=== PATIENT | female | born 1985 | race American Indian/Alaskan Native ===

== ENCOUNTER 2016-10-30 23:19 | Emergency (ER) | payer MEDICAID ==
[2016-10-31 00:24] LABS: Basophils % (Auto) 0.8 % (0.0-1.8); Eosinophils % (Auto) 2.3 % (0.0-4.3); Hematocrit 38.5 % (30.3-42.9); Hemoglobin 12.8 gm/dl (10.1-14.3); Mean Corpuscular HGB Conc 33 % (30-34); Mean Corpuscular Hemoglobin 29 pg (28-32); Mean Corpuscular Volume 86 fl (79-97); Platelet Count 344 K/mm3 (140-440); Red Blood Count 4.46 M/mm3 (3.65-5.03); Red Cell Distribution Width 12.8 % (13.2-15.2); White Blood Count 5.9 K/mm3 (4.5-11.0)
[2016-10-31 00:39] LABS: Anion Gap 17 mmol/L; BUN/Creatinine Ratio 18.57; Blood Urea Nitrogen 13 mg/dL (7-17); Calcium 9.2 mg/dL (8.4-10.2); Carbon Dioxide 22 mmol/L (22-30); Chloride 100.7 mmol/L (98-107); Glucose 138 mg/dL (65-100); Potassium 3.7 mmol/L (3.6-5.0); Sodium 136 mmol/L (137-145)
[2016-10-31 03:46] VITALS: BP 123/79
== END 2016-10-31 04:00 | disposition left against medical advice (07) ==
LOC: ED 23:19
DX: R07.89 Other chest pain (principal); Z53.21 Procedure and treatment not carried out due to patient leaving prior to being seen by health care provider
CPT/HCPCS: 36415; 80048; 84484; 85025; 93005; 93010

== ENCOUNTER 2017-05-05 10:52 | Emergency (ER) | payer MEDICAID ==
[2017-05-05 11:13] LABS: Basophils % (Auto) 0.3 % (0.0-1.8); Eosinophils % (Auto) 2.2 % (0.0-4.3); Hematocrit 38.8 % (30.3-42.9); Hemoglobin 12.4 gm/dl (10.1-14.3); Mean Corpuscular HGB Conc 32 % (30-34); Mean Corpuscular Hemoglobin 28 pg (28-32); Mean Corpuscular Volume 88 fl (79-97); Platelet Count 354 K/mm3 (140-440); Red Blood Count 4.42 M/mm3 (3.65-5.03); Red Cell Distribution Width 13.6 % (13.2-15.2); White Blood Count 6.4 K/mm3 (4.5-11.0)
[2017-05-05 11:41] LABS: Anion Gap 20 mmol/L; Blood Urea Nitrogen 4 mg/dL (7-17); Calcium 8.9 mg/dL (8.4-10.2); Carbon Dioxide 19 mmol/L (22-30); Glucose 77 mg/dL (65-100); Potassium 3.9 mmol/L (3.6-5.0); Sodium 139 mmol/L (137-145)
[2017-05-05] MEDS ORDERED: TYLENOL PO ONE (16:24)
--- NOTE | 2017-05-05 16:48 | Emergency Department Report ---
HPI - General Chief Complaint: Dyspnea/Respdistress Time Seen by Provider: 05/05/17 16:09 - HPI HPI: 31 yo AA F presents to the ED with the complaint of right arm pain from the shoulder that sometimes goes down to the wrist and/or hand. It is a burning and stinging sensation, sharp but constant since this morning. She had some nausea without vomiting and SOB earlier today that has since resolved. She is currently 22 weeks at with 2 previousl miscarriages and 2 ectopics. No PCP but OBGYN is [facility]. She has not taken anything for her symptoms prior to presentation. She denies any CP, back pain, Cough, fever, dysuria, abdominal pain, vaginal bleeding or discharge. She says this arm pain has happened before but usually it is intermittent. No recent travel or sick contacts at home. ED Past Medical Hx - Past Medical History Previous Medical History?: Yes Hx Asthma: No Additional medical history: heart murmur - Surgical History Past Surgical History?: Yes Hx Open Heart Surgery: Yes (age 10) Additional Surgical History: "Hernia surgery"; open heart surgery at 10 for "hole in my heart"; ectopic - Social History Smoking Status: Never Smoker Substance Use Type: None - Medications Home Medications: Home Medications Medication Instructions Recorded Confirmed Last Taken Type Flaxseed Oil [Flax Seed Oil] 1,000 mg PO DAILY 03/24/16 03/24/16 Unknown History Loratadine [Claritin] 10 mg PO DAILY 03/24/16 03/24/16 Unknown History traMADol [Ultram] 50 mg PO Q6HR PRN #20 tablet 03/24/16 Unknown Rx ED Review of Systems ROS: Stated complaint: RT ARM PAIN Other details as noted in HPI Comment: All other systems reviewed and negative Constitutional: denies: chills, fever Eyes: denies: eye pain, eye discharge, vision change ENT: denies: ear pain, throat pain Respiratory: shortness of breath (resolved). denies: cough, wheezing Cardiovascular: denies: chest pain, palpitations Gastrointestinal: denies: abdominal pain, nausea, diarrhea Genitourinary: denies: urgency, dysuria, discharge Musculoskeletal: arthralgia, myalgia. denies: back pain Skin: denies: rash, lesions Neurological: denies: headache, weakness, numbness Physical Exam - Physical Exam Vital Signs: Vital Signs 05/05/17 05/05/17 05/05/17 10:55 15:52 16:35 Temperature 98.1 F Pulse Rate 89 Respiratory 18 16 Rate Blood Pressure 128/62 108/59 O2 Sat by Pulse 98 Oximetry Physical Exam: General - Well nourished. Well developed Eyes - PERRLA, EOM intact. HEENT - Atraumatic. Normocephalic. Moist mucous membranes. Oropharynx is clear. Neck - Supple. Trachea is midline. Cardiovascular - Regular rate and rhythm. No murmurs. Lungs - Clear to auscultation, No tachypnea. No signs of respiratory distress. Skin - No rashes, skin warm and dry, no erythematous areas Abdomen - Normal bowel sounds, abdomen soft and nontender. No guarding or rebound tenderness. Gravid uterus palpable just above the umbilicus. Extremeties - Right arm pain is reproducible to palpation and with ROM of the arm and shoulder. Radial pulses +2/4 b/l. Cap refill < 2 secs. No obvious signs of trauma. Neurological Alert and oriented x 3, CN 2-12 grossly intact. Normal gait. Normal speech. ED Course Vital Signs 05/05/17 05/05/17 05/05/17 10:55 15:52 16:35 Temperature 98.1 F Pulse Rate 89 Respiratory 18 16 Rate Blood Pressure 128/62 108/59 O2 Sat by Pulse 98 Oximetry ED Medical Decision Making - Lab Data Result diagrams: 05/05/17 11:00 05/05/17 11:00 - EKG Data -: EKG Interpreted by Nm EKG shows normal: sinus rhythm (with occasional PVC), axis, intervals, QRS complexes, ST-T waves Rate: normal - EKG Data When compared to previous EKG there are: no significant change Interpretation: unchanged when compared t (10/30/16) - Medical Decision Making 31-year-old female presents to the emergency department with pain to the right shoulder and right arm has been going on mostly since this morning. Earlier today she had some transient shortness of breath and some nausea without vomiting. However those symptoms have resolved she just complains of the arm pain. She has full range of motion but it does cause some discomfort with movement. The tenderness is also reproducible with palpation. There is no swelling of the joint seen, skin color change, warmth. There was no trauma to the area. Given that the patient had some arm pain and short of breath she was started here with a chest pain workup that included a negative EKG and her labs have shown negative troponins 2. She has no tachycardia, hypoxia, current chest pain or shortness of breath and appears low suspicion for pulmonary embolism. She was given some Tylenol for her discomfort with some relief of her symptoms. She appears safe for discharge home at this time. She has been given a referral for an orthopedist. She will return to the ER if any worsening or symptoms or any acute distress. - Differential Diagnosis arthritis, septic joint, muscle spasm, sprain, paresthesias, neuropathy Critical Care Time: No Critical care attestation.: If time is entered above; I have spent that time in minutes in the direct care of this critically ill patient, excluding procedure time. ED Disposition Clinical Impression: Right arm pain Qualifiers: Weeks of gestation: 22 weeks Qualified Code(s): Z3A.22 - 22 weeks gestation of Right shoulder pain Qualifiers: Chronicity: unspecified Qualified Code(s): M25.511 - Pain in right shoulder Disposition: DC-01 TO HOME OR SELFCARE Is pt being admited?: No Condition: Stable Instructions: Arthralgia (ED), (ED) Additional Instructions: Please follow up with a primary care physician in the next few days if possible. I have given a referral for a local orthopedist, Dr. Gonzalez, in case he would like to follow up regarding her shoulder and arm pain. He can take Tylenol every 4 hours, using weight-based dosing, as needed for discomfort. Return to the emergency Department with any worsening of her symptoms or any acute distress. Referrals: SAMI CULP MD [Primary Care Provider] - 3-5 Days MALIHA GONZALEZ MD [Staff Physician] - 3-5 Days
[2017-05-05 18:46] VITALS: BP 98/59
== END 2017-05-05 18:45 | disposition home or self-care (01) ==
LOC: ED 10:52
DX: O26.892 Other specified pregnancy related conditions, second trimester (principal); M25.511 Pain in right shoulder; Z3A.22 22 weeks gestation of pregnancy
CPT/HCPCS: 36415; 80048; 84484; 85025; 93005; 93010; 99283